=== PATIENT | female | born 2000 | race Two or more races ===

== ENCOUNTER → 2022-10-02 | Outpatient (CLI) | payer OTHER | LOC: M WHC 09:48 | PROVIDERS: ATTEND Obstetrics & Gynecology | DX: Z36.89 Encounter for other specified antenatal screening (principal); Z3A.19 19 weeks gestation of pregnancy ==

== ENCOUNTER → 2022-11-16 | Outpatient (CLI) | payer OTHER | LOC: M WHC 14:06 | PROVIDERS: ATTEND Obstetrics & Gynecology | DX: Z36.89 Encounter for other specified antenatal screening (principal); Z3A.26 26 weeks gestation of pregnancy ==

== ENCOUNTER 2023-02-07 05:02 | Inpatient (IN) | payer OTHER ==
[2023-02-07] VITALS (9 sets, daily range): BP systolic 107–152; BP diastolic 62–90; O2SAT 96–98
[~2023-02-07] VITALS: Ht 172.7 cm; Wt 79.0 kg
[2023-02-07] MEDS ORDERED: OXYTOCIN INJ 10UNITS/ML 1ML VIAL As Ordered ONE (05:15)
[2023-02-07] MEDS ORDERED: OXYTOCIN 30UNITS IN 0.9% NaCl 500ML IV BAG As Ordered ONE (05:17)
[2023-02-07] MEDS ORDERED: LIDOCAINE 1% MDV 20ML VIAL As Ordered ONE (05:28)
[2023-02-07] MEDS ORDERED: OXYTOCIN DRIP 30 UNITS in IV 1 EA IV PRN (05:35)
[2023-02-07] MEDS ORDERED: LIDOCAINE 1% MDV 20ML VIAL INFIL PRN (05:35)
[2023-02-07 05:37] LABS: HEMATOCRIT 35.7 % (36.0-47.0); HEMOGLOBIN 11.8 g/dl (12.0-15.5); MEAN CORPUSCULAR HEMOGLOBIN 26.6 pg (27.0-33.0); MEAN CORPUSCULAR HGB CONC 33.1 g/dl (32.0-36.5); MEAN CORPUSCULAR VOLUME 80.4 fl (80.0-96.0); PLATELET COUNT, AUTOMATED 256 10^3/uL (150-450); RED BLOOD COUNT 4.44 10^6/uL (4.00-5.40); WHITE BLOOD COUNT 18.1 10^3/uL (4.0-10.0)
[2023-02-07] MEDS ORDERED: OXYTOCIN DRIP 30 UNITS in IV 1 EA IV SCH ×5 (05:55→06:05)
[2023-02-07] MEDS ORDERED: MORPHINE 4 MG/ML 1ML VIAL IV ONE (06:00)
[2023-02-07] MEDS ORDERED: ANUSOL HC CREAM 30GM TOP PRN (06:05)
[2023-02-07] MEDS ORDERED: RHOGAM 300MCG (1500IU) INJ IM SCH (06:05)
[2023-02-07] MEDS ORDERED: DIBUCAINE 1% OINTMENT 30GM TOP PRN (06:05)
[2023-02-07] MEDS ORDERED: ACETAMINOPHEN 500 MG TAB PO PRN (06:05)
[2023-02-07] MEDS ORDERED: MOM 30ML SUSPENSION UDC PO PRN (06:05)
[2023-02-07] MEDS ORDERED: METHYLERGONOVINE MALEATE 0.2 MG TAB PO PRN (06:05)
[2023-02-07] MEDS: IBUPROFEN 800 MG TAB PO PRN ×2 (06:39→19:00)
[2023-02-07] MEDS: PRENATAL VITAMINS CHEWABLE TABLET PO SCH (09:34)
[2023-02-07] MEDS: DOCUSATE SODIUM 100MG CAPSULE PO SCH ×2 (09:34→21:00)
[2023-02-08 05:40] VITALS: BP 102/59; O2SAT 98
[2023-02-08] MEDS: PRENATAL VITAMINS CHEWABLE TABLET PO SCH (07:51)
[2023-02-08] MEDS: DOCUSATE SODIUM 100MG CAPSULE PO SCH (07:51)
[2023-02-08] MEDS: IBUPROFEN 800 MG TAB PO PRN ×2 (09:39→16:34)
[2023-02-08] MEDS ORDERED: INFLUENZA QUADRIVALENT PF VACCINE 0.5ML SYRINGE IM.IMMUN ONE (10:05)
[2023-02-08] MEDS ORDERED: BOOSTRIX VACCINE (TETANUS/DIPHTH/ACEL. PERTUSSIS) 0.5ML SYR IM.IMMUN ONE (10:10)
[2023-02-09] MEDS ORDERED: MEASLES,MUMPS,RUBELLA VACCINE INJ (MMR-II) SC.IMMUN ONE (09:00)
== END 2023-02-08 17:55 | disposition home or self-care (01) | DRG 807 ==
LOC: M LDO 05:02 → M LDI 05:05 → M OBS 09:21
PROVIDERS: ADMIT Obstetrics & Gynecology; ATTEND Obstetrics & Gynecology
PROC: 10E0XZZ Delivery of Products of Conception, External Approach (ICD-10-PCS; principal; 2023-02-07)
PROC: 0KQM0ZZ Repair Perineum Muscle, Open Approach (ICD-10-PCS; 2023-02-07)
DX: O62.3 Precipitate labor (principal); Z37.0 Single live birth; Z3A.37 37 weeks gestation of pregnancy; O70.1 Second degree perineal laceration during delivery

== ENCOUNTER 2023-02-11 15:01 | Emergency (ER) | payer OTHER ==
[~2023-02-11] VITALS: Ht 172.7 cm; Wt 78.4 kg
[2023-02-11 17:22] VITALS: BP 131/82; TEMP 98.5; O2SAT 100
== END 2023-02-11 17:29 | disposition home or self-care (01) ==
LOC: M ED 15:01
DX: P83.4 Breast engorgement of newborn (principal)

== ENCOUNTER 2024-01-16 08:57 | Emergency (ER) | payer OTHER ==
[~2024-01-16] VITALS: Ht 172.7 cm; Wt 68.2 kg
[2024-01-16 10:49] VITALS: BP 114/62; TEMP 98.5; O2SAT 98
== END 2024-01-16 11:30 | disposition home or self-care (01) ==
LOC: M ED 08:57
DX: J06.9 Acute upper respiratory infection, unspecified (principal)